=== PATIENT | male | born 1990 | race Caucasian/White ===

== ENCOUNTER 2024-11-16 00:57 | Emergency (ER) | payer MEDICAID, SELFPAY ==
--- NOTE | ~2024-11-16 | CT_ITS ---
CLINICAL HISTORY: right flank pain CT abdomen and pelvis without contrast Comparison: None Findings: The lung bases are clear. Unremarkable gallbladder and solid organs. No urolithiasis. No bowel obstruction, pneumoperitoneum, or pneumatosis. Pelvic contents unremarkable. Normal appendix. No acute fracture. IMPRESSION: No acute findings. This document has been electronically signed by: Jann Salcido MD on 11/16/2024 04:48:29
[2024-11-16 01:34] VITALS: BP 119/67; PULSE 104; RESP 20; TEMP 37.9; O2SAT 97; BMI 22.6
[2024-11-16 03:38] LABS: MANUAL DIFF FLAG NO
[2024-11-16 03:40] LABS: Basophils Percent Auto 0.3 % (0-2); Eosinophils Absolute Auto 0.1 X10*3/uL (0.0-0.4); Eosinophils Percent Auto 2.7 % (0-4); Hematocrit 41.9 % (42.0-52.0); Hemoglobin 14.5 g/dl (14.0-18.0); Lymphocytes Absolute Auto 0.7 X10*3/uL (1.2-4.9); Lymphocytes Percent Auto 18.1 % (20-40); Mean Corpuscular HGB Conc 34.6 g/dl (31.0-36.0); Mean Corpuscular Hemoglobin 28.3 pg (27.0-33.0); Mean Corpuscular Volume 81.8 fL (80.0-98.0); Mean Platelet Volume 9.8 fL (9.4-12.4); Monocytes Absolute Auto 0.3 X10*3/uL (0.1-1.2); Monocytes Percent Auto 7.5 % (2-11); Neutrophils Absolute Auto 2.7 x10*3/uL (2.0-8.3); Neutrophils Percent Auto 71.4 % (45-73); Platelet Count 207 X10*3/uL (160-400); Red Blood Count 5.12 X10*6/uL (4.60-5.80); Red Cell Distribution Width 12.9 % (11.0-16.0); White Blood Count 3.7 X10*3/uL (4.8-10.8)
[2024-11-16 03:41] LABS: Appearance Urine Clear; Color Urine Yellow; Glucose Urine UA Negative (Negative); Leukocyte Esterase Urine Negative (Negative); Nitrite Urine Negative (Negative); Urine Blood Negative (Negative); Urine Ketones 15 mg/dL (Negative); Urine Protein Negative (Neg-Trace)
--- NOTE | 2024-11-16 03:47 | ED.ABDPAIN ---
HPI - Abdominal Pain General Chief Complaint: Abdominal Pain Stated Complaint: abd pain Time Seen by Provider: 11/16/24 03:37 Source: patient Mode of arrival: ambulatory Limitations: no limitations History of Present Illness ED Provider: DR. See HPI narrative: 33-year-old male came in for evaluation of right-sided abdominal pain time 4-5 days, pain is radiating toward right groin area and the right flank area, pain is associated with nausea and 1 time vomiting in the ED, no fever, no chills, decreased appetite. Never had similar pain in the past, never had intra-abdominal surgery in the past. Related Data Allergies Allergy/AdvReac Type Severity Reaction Status Date / Time No Known Allergies Allergy Unverified 11/16/24 01:37 Review of Systems Review of Systems All other systems are reviewed and are negative Constitutional: Reports as per HPI and Reports no additional constitutional complaints Eyes: Reports as per HPI and Reports no additional eye complaints Reports system reviewed and no additional complaints, except as documented Cardiovascular: Reports as per HPI and Reports no additional cardiovascular complaints Respiratory: Reports as per HPI and Reports no additional respiratory complaints Gastrointestinal: Reports as per HPI and Reports no additional gastrointestinal complaints Genitourinary: Reports no additional female genitourinary complaints Musculoskeletal: Reports no additional musculoskeletal complaints Skin/Breast: Reports system reviewed and no additional complaints, except as docu Psychiatric: Reports no additional psychiatric complaints Endocrine: Reports no additional endocrine complaints Hematologic/Lymphatic: Reports no additional hematologic/lymphatic complaints Allergic/Immunologic: Reports no additional allergic/immunologic complaints Reports system reviewed and no additional complaints, except as documented and Reports Abnormal speech present PMFSH Social History Social History Advance Directives: No Advance Directives Information Provided: Yes Do you have a plan to hurt others: No Plan Physical Exam ED Vital Signs: Vital Signs - 24 hr 11/16/24 01:34 Temperature 100.3 F Pulse Rate 104 H Respiratory Rate 20 Blood Pressure 119/67 Pulse Oximetry 97 Oxygen Delivery Method Room Air BMI result Body Mass Index 22.6 Vital signs have been reviewed and appear to be correct. Blood pressure elevated. Heart rate normal. Respiratory rate normal. Temperature normal. Oxygen saturation normal. Appearance: Alert. Oriented X3. No acute distress. Head: Normal external exam. Normocephalic. Atraumatic. No Alexandre signs noted. No raccoon eyes noted Eyes: PERRLA. EOMI. Conjunctiva and sclera normal. Eyelids normal. ENT: TM's Normal. Pharynx normal. Uvula midline. Moist mucous membranes. No trismus noted. No drooling noted. No muffled voice noted. Neck: Normal inspection. Neck supple. FROM. No adenopathy. Thyroid Normal. No meningeal signs. No neck mass noted. CVS: Normal heart rate and rhythm. Heart sound normal. No murmurs noted. Pulses normal throughout. Respiratory: No respiratory distress. Painless inspiration. Breath sounds normal. No wheezes/rales/rhonchi noted. Chest nontender. No accessory muscle usage noted or decreased air movement noted. Abdomen: Soft and nontender. Bowel sounds normal in all 4 quadrants. No distention noted. No organomegaly noted. No visible injury noted. Back: No CVA tenderness. Full range of motion noted. Skin: Skin warm and dry. Normal skin color. Normal skin turgor. No rashes/lesions/lacerations noted. Extremities: No lower extremity edema. Extremities exhibit normal range of motion. Extremities nontender. Neuro: Oriented X 3. Cranial nerve exam: II-XII are grossly intact No motor deficit. No sensory deficit. Reflexes normal. Course Reevaluation(s) Reevaluation #1: feels better, CT abdomen pelvis shows no acute intra-abdominal pathology. Labs are unremarkable. will discharge to follow-up with PCP. Time: 06:20 Medical Decision Making Differential Diagnosis Differential Diagnoses: The differential diagnosis associated with the presentation includes ( Renal colic, ureteric stone, acute appendicitis, diverticulitis, colitis, pancreatitis, gallbladder disease, severe anemia, electrolyte derangement.) Admission/Observation Consideration of admission/observation: Escalation of care including admission/observation considered Lab Data MDM Lab Attestation statement: I reviewed the patient's lab results. 11/16/24 03:30 11/16/24 03:30 Labs: Lab Results 11/16/24 Range/Units 03:30 WBC 3.7 L (4.8-10.8) X10*3/uL RBC 5.12 (4.60-5.80) X10*6/uL Hgb 14.5 (14.0-18.0) g/dl Hct 41.9 L (42.0-52.0) % MCV 81.8 (80.0-98.0) fL MCH 28.3 (27.0-33.0) pg MCHC 34.6 (31.0-36.0) g/dl RDW 12.9 (11.0-16.0) % Plt Count 207 (160-400) X10*3/uL MPV 9.8 (9.4-12.4) fL Immature Gran % (Auto) 0.0 (0.0-0.4) % Neut % (Auto) 71.4 (45-73) % Lymph % (Auto) 18.1 L (20-40) % [place] % (Auto) 7.5 (2-11) % Eos % (Auto) 2.7 (0-4) % Baso % (Auto) 0.3 (0-2) % Lymph # (Auto) 0.7 L (1.2-4.9) X10*3/uL [place] # (Auto) 0.3 (0.1-1.2) X10*3/uL Eos # (Auto) 0.1 (0.0-0.4) X10*3/uL Baso # (Auto) 0.0 (0.0-0.2) X10*3/uL Abs Immat Gran (auto) 0.00 (0.00-0.03) X10*3/uL Absolute Neuts (auto) 2.7 (2.0-8.3) x10*3/uL Absolute Nucleated RBC 0.000 (0.0-0.012) X10*3/uL Nucleated RBC % (auto) 0.0 (0.0-0.2) /100WBC Sodium 136 (135-145) mmol/L Potassium 4.4 (3.3-5.1) mmol/L Chloride 103 (96-108) mmol/L Carbon Dioxide 24 (22-29) mmol/L Anion Gap 13 (12-20) BUN 15 (9-16) mg/dL Creatinine 0.93 (0.5-1.4) mg/dL Estim Creat Clear Calc 89.2 Estimated GFR > 60 Random Glucose 97 (60-115) mg/dL Calcium 9.4 (8.4-10.2) mg/dL Urine Color Yellow Urine Appearance Clear Urine pH 8.0 (5.0-9.0) Ur Specific [place] 1.020 (1.005-1.025) Urine Protein Negative (Neg-Trace) mg/dL Urine Glucose (UA) Negative (Negative) mg/dL Urine Ketones 15 (Negative) mg/dL Urine Blood Negative (Negative) Urine Nitrite Negative (Negative) Ur Leukocyte Esterase Negative (Negative) Influenza Type A (PCR) NEGATIVE (Negative) Influenza Type B (PCR) POSITIVE A (Negative) RSV RNA Qual (PCR) NEGATIVE (Negative) SARS-CoV-2 RNA (RT-PCR) NEGATIVE (Negative) Independent Interpretation I performed an independent interpretation of an: CT Scan ( Abdomen and pelvis:he lung bases are clear. Unremarkable gallbladder and solid organs. No urolithiasis. No bowel obstruction, pneumoperitoneum, or pneumatosis. Pelvic contents unremarkable. Normal appendix. No acute fracture.) Radiology Impression Discussion of test interpretation with radiology: I have reviewed the radiologist's reading. Medications Administered Discontinued Medications Generic Name Dose Route Start Last Admin Trade Name Freq PRN Reason Stop Dose Admin Ketorolac Tromethamine 15 mg 11/16/24 03:45 11/16/24 04:11 Ketorolac Tromethamine 15 Mg/Ml Vial IVPUSH 11/16/24 03:46 Not Given ONCE ONE Ketorolac Tromethamine 15 mg 11/16/24 04:09 11/16/24 04:18 Ketorolac Tromethamine 15 Mg/Ml Vial IM 11/16/24 04:10 15 mg ONCE STA Administration Morphine Sulfate 1 mg 11/16/24 03:45 11/16/24 04:11 Morphine Sulfate 2 Mg/Ml Cartridge IVPUSH 11/16/24 03:46 Not Given ONCE ONE Protocol Ondansetron HCl 4 mg 11/16/24 03:45 11/16/24 04:11 Ondansetron Hcl 4 Mg/2 Ml Vial IVPUSH 11/16/24 03:46 Not Given ONCE ONE Ondansetron HCl 4 mg 11/16/24 04:08 11/16/24 04:18 Ondansetron Odt 4 Mg Tab.Rapdis TRANSLINGU 11/16/24 04:09 4 mg ONCE ONE Administration Discharge Plan Discharge Clinical Impression: Abdominal pain Patient Disposition: Home, Self-Care Instructions: Abdominal Pain (ED) Print Language: Bengali
[2024-11-16 04:01] LABS: Anion Gap 13 (12-20); Blood Urea Nitrogen 15 mg/dL (9-16); Calcium 9.4 mg/dL (8.4-10.2); Carbon Dioxide 24 mmol/L (22-29); Chloride 103 mmol/L (96-108); Creatinine Clr Calc Pharmacy 89.2; Estimated Glomerular Filt Rate > 60; Glucose Random 97 mg/dL (60-115); Potassium 4.4 mmol/L (3.3-5.1); Sodium 136 mmol/L (135-145)
[2024-11-16 04:18] LABS: Influenza A PCR NEGATIVE (Negative); Influenza B PCR POSITIVE (Negative); Resp Syncy Virus RNA Qual PCR NEGATIVE (Negative); SARS COV2 PCR INHOUSE NEGATIVE (Negative)
[2024-11-16] MEDS: Ondansetron ODT 4 MG TAB.RAPDIS TRANSLINGU (04:18)
[2024-11-16] MEDS: Ketorolac Tromethamine 15 MG/ML VIAL IM (04:18)
[2024-11-16 06:35] VITALS: BP 98/54; PULSE 83; RESP 16; TEMP 36.7; O2SAT 97
[2024-11-16 06:42] VITALS: BP 103/62; PULSE 93; RESP 16; TEMP 36.7; O2SAT 96
[2024-11-16 07:18] VITALS: BP 105/63; PULSE 79; RESP 18; O2SAT 98
[2024-11-16 07:22] VITALS: BP 105/63; PULSE 79; RESP 18; TEMP 36.7; O2SAT 98
== END 2024-11-16 07:22 | disposition home or self-care (01) ==
PROVIDERS: Emergency Provider Emergency Medicine
DX: R10.2 Pelvic and perineal pain (principal); R11.2 Nausea with vomiting, unspecified; Z03.818 Encounter for observation for suspected exposure to other biological agents ruled out; Z79.899 Other long term (current) drug therapy
CPT/HCPCS: 0241U; 36415; 74176; 80048; 81003; 85025; 96372; 99284; J1885

== ENCOUNTER → 2024-11-16 03:45 | Outpatient (BNV) | payer SELFPAY | PROVIDERS: Emergency Provider Emergency Medicine; Visit Provider Specialist | DX: R10.9 Unspecified abdominal pain (principal) | CPT/HCPCS: 74176 ==

== ENCOUNTER 2024-12-01 19:11 | Emergency (ER) | payer MEDICAID, SELFPAY ==
[2024-12-01 19:14] VITALS: BP 107/69; PULSE 111; RESP 18; TEMP 36.7; O2SAT 98; BMI 22.0
--- NOTE | 2024-12-01 19:14 | ED_ITS ---
HPI - General Adult General Chief complaint: Abdominal Pain Stated complaint: Fevers, and vomiting Time Seen by Provider: 12/01/24 19:33 History of Present Illness ED Provider: JANAK MAURICE MD HPI narrative: [age] MALE RETURNS SEVERAL WEEKS AFTER SIMILAR EPISODE NAUSEA NONBLOODY NONBILIOUS VOMITING LOWER ABDOMINAL DISCOMFORT. NO TESTICULAR SCROTAL PAIN OR OTHER UROLOGIC SYMPTOMS. NO PRIOR KIDNEY STONES OR ABDOMINAL SURGICAL HISTORY. SYMPTOMS STARTED ABOUT 1 OR 2 DAYS AGO POINTS TO THE SUPRAPUBIC AND RIGHT LOWER ABDOMEN APPEARS THIS IS SIMILAR LOCATIONS TO THE LAST TIME HE WAS HERE. DOES NOT SEE A DOCTOR REGULARLY DENIES TOXIC SOCIAL HABITS Related Data Previous Rx's ?Medication ?Instructions ?Recorded ondansetron HCl 4 mg tablet 4 mg PO Q8H PRN nausea and 12/01/24 vomiting #7 tabs Allergies Allergy/AdvReac Type Severity Reaction Status Date / Time No Known Allergies Allergy Verified 12/01/24 19:17 [facility] Social History Social History Smoked in Last 30 Days: No Use of substances other than those prescribed or required for medical reasons: No Advance Directives: No Advance Directives Information Provided: Yes Do you have a plan to hurt others: No Plan Physical Exam ED Vital Signs: Vital Signs - 24 hr 12/01/24 19:14 12/01/24 19:42 12/01/24 22:00 Temperature 98.0 F 98.3 F 98.8 F Pulse Rate 111 H 91 84 Respiratory Rate 18 14 14 Blood Pressure 107/69 110/71 99/60 Pulse Oximetry 98 99 95 Oxygen Delivery Method Room Air Room Air Room Air 12/01/24 22:15 Temperature 98.8 F Pulse Rate 84 Respiratory Rate 14 Blood Pressure 99/60 Pulse Oximetry 95 Oxygen Delivery Method Room Air BMI result Body Mass Index 22.0 Const Other: EXAM: GEN: ALERT, AWAKE, WELL APPEARING, WELL HYDRATED. HEAD: ATRAUMATIC EYES: ANICTERIC, NORMAL CONJUNCTIVA. ENT: MOIST MUCOSA, NO PALLOR. NECK: SUPPLE. RESPIRATORY: BREATHING COMFORTABLY, NO DISTRESS.CLEAR TO AUSCULTATION BILATERALLY, SYMMETRIC CHEST EXPANSION, NO WHEEZE, RALES, RONCHI. CARDIOVASCULAR: REGULAR RATE AND RHYTHM. NO MURMURS OR RUB. WELL PERFUSED PERIPHERY, WARM EXTREMITIES. NO EDEMA. ABDOMINAL: SOFT, MILD TENDERNESS ACROSS THE LOWER ABDOMEN POORLY LOCALIZED. NEGATIVE MCBURNEY'S POINT TENDERNESS NEGATIVE PSOAS SIGN. NO PALPABLE MASSES OR OBVIOUS ORGANOMEGALY. NO FOCAL TENDERNESS, NO GUARDING, NO REBOUND TENDERNESS OR OTHER PERITONEAL FINDINGS. : NO FLANK TENDERNESS. NEURO: ALERT. GROSS MOVEMENT OF ALL EXTREMITIES INTACT. VITAL SIGNS: SEE FLOWSHEET Course Course Course Narrative: RME performed by Huma Doll PA-C. Patient is a 33 year old assigned male at presenting to the emergency department with abdominal pain and fevers. Patient states he was seen for something similar on 11/16 and told it was Influenza B. Patient states that it got better for a little bit and is now back and much worse. Detailed physical exam and review of systems are deferred to the fiberglass model maker. Labs and swabs ordered. Patient placed back in the waiting room pending room availability and results. Medications Administered Discontinued Medications Generic Name Dose Route Start Last Admin Trade Name Freq PRN Reason Stop Dose Admin Sodium Chloride 1,000 mls @ 999 mls/hr 12/01/24 20:30 12/01/24 20:46 Ns IV 12/01/24 21:30 999 mls/hr .Q1H1M SARAH Administration Ondansetron HCl 4 mg 12/01/24 20:11 12/01/24 20:15 Ondansetron Hcl 4 Mg/2 Ml Vial IVPUSH 12/01/24 20:12 4 mg ONCE ONE Administration Ondansetron HCl 4 mg 12/01/24 20:26 12/01/24 20:44 Ondansetron Hcl 4 Mg/2 Ml Vial IVPUSH 12/01/24 20:27 4 mg ONCE ONE Administration Medical Decision Making Medical Decision Making MDM Narrative: 33-YEAR-OLD MALE WITH LESS THAN 48 HOURS OF GI SYMPTOMS ABOVE. MINIMAL TENDERNESS BROADLY ACROSS THE LOWER ABDOMEN OTHERWISE SOFT NO HERNIAS NO SURGICAL HISTORY NO TESTICULAR UROLOGIC SYMPTOMS. HE WAS NAUSEATED AND VOMITING SMALL AMOUNT OF BILIOUS MATERIAL ON ARRIVAL. CT PERFORMED SHE WEEKS AGO HERE WITH NO ACUTE INTRA-ABDOMINAL PATHOLOGY VERY SIMILAR PRESENTATION. NO FEVER. NO LEUKOCYTOSIS, CRP NOT ELEVATED LOW LIKELIHOOD APPENDICITIS THOUGH THIS WAS CONSIDERED. SUSPECT ACUTE GASTROENTERITIS SYMPTOMATIC RELIEF ACHIEVED WITH FLUID ZOFRAN DISCHARGE HOME CLOSE FOLLOW-UP AND RETURN PRECAUTIONS Lab Data 12/01/24 19:54 12/01/24 19:54 Labs: Lab Results 12/01/24 Range/Units 19:54 WBC 8.9 (4.8-10.8) X10*3/uL RBC 5.47 (4.60-5.80) X10*6/uL Hgb 15.6 (14.0-18.0) g/dl Hct 44.1 (42.0-52.0) % MCV 80.6 (80.0-98.0) fL MCH 28.5 (27.0-33.0) pg MCHC 35.4 (31.0-36.0) g/dl RDW 13.0 (11.0-16.0) % Plt Count 296 D (160-400) X10*3/uL MPV 10.2 (9.4-12.4) fL Immature Gran % (Auto) 0.2 (0.0-0.4) % Neut % (Auto) 91.3 H (45-73) % Lymph % (Auto) 5.5 L (20-40) % [place] % (Auto) 2.8 (2-11) % Eos % (Auto) 0.0 (0-4) % Baso % (Auto) 0.2 (0-2) % Lymph # (Auto) 0.5 L (1.2-4.9) X10*3/uL [place] # (Auto) 0.3 (0.1-1.2) X10*3/uL Eos # (Auto) 0.0 (0.0-0.4) X10*3/uL Baso # (Auto) 0.0 (0.0-0.2) X10*3/uL Abs Immat Gran (auto) 0.02 (0.00-0.03) X10*3/uL Absolute Neuts (auto) 8.2 (2.0-8.3) x10*3/uL Absolute Nucleated RBC 0.000 (0.0-0.012) X10*3/uL Nucleated RBC % (auto) 0.0 (0.0-0.2) /100WBC Smear Tech's Comments VERIFIED Sodium 137 (135-145) mmol/L Potassium 3.9 (3.3-5.1) mmol/L Chloride 103 (96-108) mmol/L Carbon Dioxide 24 (22-29) mmol/L Anion Gap 14 (12-20) BUN 23 H (9-16) mg/dL Creatinine 0.99 (0.5-1.4) mg/dL Estim Creat Clear Calc 83.0 Estimated GFR > 60 Random Glucose 128 H (60-115) mg/dL Calcium 9.4 (8.4-10.2) mg/dL Magnesium 1.9 (1.6-2.6) mg/dL Total Bilirubin 0.7 (0.0-1.0) mg/dL AST 24 (5-37) U/L ALT 22 (0-40) U/L Alkaline Phosphatase 114 (39-117) U/L C-Reactive Protein 1.28 H (< or = 0.50) mg/dL Total Protein 8.3 H (6.5-8.0) g/dL Albumin 4.6 (3.5-5.0) g/dL Urine Color Yellow Urine Appearance Clear Urine pH 5.5 (5.0-9.0) Ur Specific [place] >= 1.030 H (1.005-1.025) Urine Protein Negative (Neg-Trace) mg/dL Urine Glucose (UA) Negative (Negative) mg/dL Urine Ketones 40 (Negative) mg/dL Urine Blood Negative (Negative) Urine Nitrite Negative (Negative) Ur Leukocyte Esterase Negative (Negative) Influenza Type A (PCR) NEGATIVE (Negative) Influenza Type B (PCR) NEGATIVE (Negative) RSV RNA Qual (PCR) NEGATIVE (Negative) SARS-CoV-2 RNA (RT-PCR) NEGATIVE (Negative) Discharge Plan Discharge Clinical Impression: Vomiting Patient Disposition: Home, Self-Care Instructions: Acute Abdominal Pain (DC) Additional Instructions: DISCHARGE DIAGNOSES: ABDOMINAL PAIN, VOMITING UNCLEAR CAUSE POSSIBLY GASTROINTESTINAL VIRUS, FOOD- BORNE ILLNESS HISTORY OF PRESENTATION: ABDOMINAL PAIN VOMITING EMERGENCY DEPARTMENT COURSE,TESTS, TREATMENTS: WHILE IN THE ED TODAY YOU RECEIVED INTRAVENOUS NAUSEA MEDICINES IV FLUID WITH IMPROVEMENT YOU HAD BLOOD WORK THAT WAS REASSURING DISCHARGE MEDICATIONS: ONDANSETRON NAUSEA MEDICINE PRESCRIBED ONLY NEEDED FOLLOW-UP: CALL YOUR PRIMARY OR GENERAL PHYSICIAN SOON POSSIBLE TO DISCUSS YOUR SYMPTOMS, YOUR ED VISIT AND TO DISCUSS FOLLOW UP PLANS INSTRUCTIONS & RETURN PRECAUTIONS: IF ANY SYMPTOMS CHANGE FIRST CALL YOUR PRIMARY PHYSICIAN, IF IT IS AFTER-HOURS YOUR PRIMARY DOCTORS OFFICE SHOULD HAVE A PROVIDER MANAGER CLINICAL INFORMATICS YOU CAN SPEAK WITH. IF THE SYMPTOMS ARE SEVERE OR VERY CONCERNING TO YOU THEN CALL 911 OR RETURN TO THE ED. JANAK MAURICE MD EMERGENCY PHYSICIAN [facility] Prescriptions: New ondansetron HCl 4 mg tablet 4 mg PO Q8H PRN (Reason: nausea and vomiting) Qty: 7 0RF [place]: [facility] [place] ( CALL TO ESTABLISH PRIMARY CARE) [facility] [[place] Group] Interventions: ED Discharge Assessment Last Done: 12/01/24 22:15 Discharge Date/Time: 12/01/24 22:17 Print Language: Bhutanese
[2024-12-01 19:42] VITALS: BP 110/71; PULSE 91; RESP 14; TEMP 36.8; O2SAT 99
[2024-12-01 20:01] LABS: Basophils Percent Auto 0.2 % (0-2); Hematocrit 44.1 % (42.0-52.0); Hemoglobin 15.6 g/dl (14.0-18.0); Imm Gran Abs Auto 0.02 X10*3/uL (0.00-0.03); Imm Gran Pct Auto 0.2 % (0.0-0.4); Lymphocytes Absolute Auto 0.5 X10*3/uL (1.2-4.9); Lymphocytes Percent Auto 5.5 % (20-40); MANUAL DIFF FLAG SCAN; Mean Corpuscular HGB Conc 35.4 g/dl (31.0-36.0); Mean Corpuscular Hemoglobin 28.5 pg (27.0-33.0); Mean Corpuscular Volume 80.6 fL (80.0-98.0); Mean Platelet Volume 10.2 fL (9.4-12.4); Monocytes Absolute Auto 0.3 X10*3/uL (0.1-1.2); Monocytes Percent Auto 2.8 % (2-11); Neutrophils Absolute Auto 8.2 x10*3/uL (2.0-8.3); Neutrophils Percent Auto 91.3 % (45-73); Platelet Count 296 X10*3/uL (160-400); Red Blood Count 5.47 X10*6/uL (4.60-5.80); SCAN SMEAR FLAG 1; White Blood Count 8.9 X10*3/uL (4.8-10.8)
[2024-12-01 20:02] LABS: Appearance Urine Clear; Color Urine Yellow; Glucose Urine UA Negative (Negative); Leukocyte Esterase Urine Negative (Negative); Nitrite Urine Negative (Negative); PH 5.5 (5.0-9.0); Specific Gravity - Urine >= 1.030 (1.005-1.025); Urine Blood Negative (Negative); Urine Ketones 40 mg/dL (Negative); Urine Protein Negative (Neg-Trace)
--- NOTE | 2024-12-01 20:07 | PC.NURSE ---
Pt is a&ox4, no signs of distress. Pt ambulates with a steady gait Pt denies pain at this time Pt reports he was here 2 wks ago and was told he had the flu Pt reports he now has n/v and diarrhea 1 episode. Pts mom at bedside Plan of care ongoing.
[2024-12-01] MEDS: ondansetron HCL 4 MG/2 ML VIAL IVPUSH ×2 (20:15→20:44)
[2024-12-01 20:17] LABS: Alanine Aminotransferase 22 U/L (0-40); Albumin Level 4.6 g/dL (3.5-5.0); Alkaline Phosphatase 114 U/L (39-117); Anion Gap 14 (12-20); Aspartate Amino Transferase 24 U/L (5-37); Bilirubin Total 0.7 mg/dL (0.0-1.0); Blood Urea Nitrogen 23 mg/dL (9-16); Calcium 9.4 mg/dL (8.4-10.2); Carbon Dioxide 24 mmol/L (22-29); Chloride 103 mmol/L (96-108); Estimated Glomerular Filt Rate > 60; Glucose Random 128 mg/dL (60-115); Magnesium 1.9 mg/dL (1.6-2.6); Potassium 3.9 mmol/L (3.3-5.1); Sodium 137 mmol/L (135-145); Total Protein 8.3 g/dL (6.5-8.0)
--- NOTE | 2024-12-01 20:19 | PC.NURSE ---
Pt medicated per [facility] Plan of care ongoing.
[2024-12-01 20:25] LABS: SLIDE REVIEW VERIFIED
[2024-12-01 20:39] LABS: Influenza A PCR NEGATIVE (Negative); Influenza B PCR NEGATIVE (Negative); Resp Syncy Virus RNA Qual PCR NEGATIVE (Negative); SARS COV2 PCR INHOUSE NEGATIVE (Negative)
[2024-12-01 20:43] LABS: C Reactive Protein 1.28 mg/dL (< or = 0.50)
[2024-12-01] MEDS: 0.9 % Sodium Chloride 1,000 ML 999 ML IV (20:46)
[2024-12-01 22:00] VITALS: BP 99/60; PULSE 84; RESP 14; TEMP 37.1; O2SAT 95
[2024-12-01 22:15] VITALS: BP 99/60; PULSE 84; RESP 14; TEMP 37.1; O2SAT 95
== END 2024-12-01 22:17 | disposition home or self-care (01) ==
PROVIDERS: Physician Assistant Medical; Emergency Provider Emergency Medicine
DX: R11.2 Nausea with vomiting, unspecified (principal); R10.31 Right lower quadrant pain; R50.9 Fever, unspecified; Z03.818 Encounter for observation for suspected exposure to other biological agents ruled out
CPT/HCPCS: 0241U; 80053; 81003; 83735; 85025; 86140; 96374; 99284; J2405